=== PATIENT | female | born 1995 | race Caucasian/White ===

== ENCOUNTER 2018-11-29 14:04 | Emergency (ER) | payer BC ==
[~2018-11-29] VITALS: Ht 165.1 cm; Wt 77.6 kg
[~2018-11-29 14:04] MED LIST: BACLOFEN10 MG PO; CIPRO500 MG PO; DOXYCYCLINE HY100 MG PO; [UNRECOGNIZED DRUG - REMARK]
[2018-11-29] MEDS ORDERED: PENICILLIN V P500 MG PO (14:16)
== END 2018-11-29 14:35 | disposition home or self-care (01) ==
LOC: ED 14:04
DX: R04.0 Epistaxis (principal); F32.9 Major depressive disorder, single episode, unspecified; Z87.891 Personal history of nicotine dependence
CPT/HCPCS: 30901; 99283-25

== ENCOUNTER 2019-12-23 19:10 | Emergency (ER) | payer OTHER ==
[~2019-12-23] VITALS: Ht 167.6 cm; Wt 74.8 kg
[~2019-12-23 19:10] MED LIST changes: +PENICILLIN V P500 MG PO
[2019-12-23] MEDS ORDERED: PENICILLIN V P500 MG PO (19:22)
== END 2019-12-23 19:42 | disposition home or self-care (01) ==
LOC: ED 19:10
DX: K02.9 Dental caries, unspecified (principal)
CPT/HCPCS: 99282